=== PATIENT | female | born 1985 | race Caucasian/White ===

== ENCOUNTER 2022-12-16 16:21 | Outpatient (CLI) | payer BC, SELFPAY ==
--- NOTE | ~2022-12-16 | MM_ITS ---
EXAMINATION: MM screening sveta BI w adebayo HISTORY: Screening mammogram TECHNIQUE: Craniocaudal and mediolateral oblique 3-D tomosynthesis images were obtained and synthetic 2-D images were generated. CAD analysis was submitted and interpreted. COMPARISON: No prior mammogram is available for comparison at this institution. BREAST PARENCHYMAL COMPOSITION:The breasts are heterogeneously dense, which may obscure small masses. FINDINGS: No suspicious mass, calcification, or architectural distortion are identified in either dangelo ast to suggest malignancy. There has been no suspicious interval change. IMPRESSION: No mammographic evidence of malignancy. Recommend routine screening mammography in one year. BI-RADS Category 1: Negative Reviewed, dictated and finalized at location .
== END 2022-12-16 16:22 | disposition home or self-care (01) ==
LOC: ANHIMG 16:24
PROVIDERS: PCP Internal Medicine; Visit Provider Surgery Plastic and Reconstructive Surgery
DX: Z12.31 Encounter for screening mammogram for malignant neoplasm of breast (principal)
CPT/HCPCS: 77063; 77067

== ENCOUNTER 2023-03-11 01:30 | Day surgery (SDC) | payer OTHER, SELFPAY ==
[2023-03-04 10:37] VITALS: BMI 25.8
--- NOTE | 2023-03-04 10:46 | PC.NURSE ---
Report to the Outpatient Waiting Room, entrance under the green pavilion located off [facility], at 0600 on 03/11/23. Planned Procedure Time: 0730. Time changes happen often and if your time is changed the preop area will call you the afternoon before. - You and your visitor will be asked to self-screen and do not enter if you have any COVID symptoms. - A mask is optional within the hospital at this time. Patients may have clear liquids (water, carbonated beverages, clear teas, apple juice) until 3 hours prior to surgery with a maximum of 20 ounces. - No food from midnight until time of surgery Take the following medications with a SIP of water the morning of surgery: Fluoxetine, Inhaler if needed DO NOT STOP ANY OF YOUR OTHER PRESCRIPTION MEDICATIONS PRIOR TO SURGERY ?EXCEPT THE FOLLOWING Medications to discontinue per physician n/a Date to take last dose n/a Please no make-up, nail dutch, hairspray, perfume, deodorant, or body powder the day of surgery. No jewelry (including any body piercings) or valuables the day of surgery, leave them at home. Please take a shower or bath the night before, or the morning of, surgery with an antibacterial soap. Wear comfortable, loose fitting clothing. - Jewelry must be removed prior to entering the operating room. Rings and piercings that are not removed may be cut off. - The hospital will not accept responsibility for valuables. - Please leave all valuables, including medications, at home the day of surgery. If you are going home after surgery, a licensed truck driver instructor must drive you home. - NO public transportation without another adult if you receive anesthesia. - We recommend that an adult stay with you for 24 hours following discharge. - We also recommend that you do not drive, make important decision, drink alcoholic beverages, or take any drugs that were not prescribed by your health care provider for at least 24 hours after your discharge time. Follow any additional instructions given to you from your surgeon. If you or anyone in your household have experienced Covid symptoms in the past week, please notify your surgeon or the nurse liaison at the phone number below for possible testing. Telephone instructions given to patient and asked if any additional questions and then verbalized understanding. Patient advised to call surgeon office or pre surgery nurse liaison [phone] if any additional questions.
--- NOTE | 2023-03-10 09:09 | P.PNAN_ITS ---
Anes - Initial Pre Proc Eval Procedure: Operation Date: 03/11/23 07:30 Proposed Procedures p Abdominoplasty with Liposuction - Luis Prince MD s Bilateral Breast Augmentation - Luis Prince MD Date/Time: 03/10/23 09:09 Surgeon: Luis Prince MD Pre Op Diagnosis: Skin Laxity, Micromastia Patient Data Age: 38 Gender: F Height: 1.68 m Weight: 72.57 kg Allergies Allergy/AdvReac Type Severity Reaction Status Date / Time iodine Allergy UNKNOWN Verified 03/11/23 06:35 REACTION- TESTED POSITIVE IN ALLERGY TEST shrimp Allergy UNKNOWN- Verified 03/11/23 06:35 TESTED POSITIVE ON ALLERGY TEST Home Medications Medication Instructions Recorded Confirmed Type albuterol sulfate 90 mcg/actuation 1 puff inhalation DIRECTED PRN 08/13/19 03/04/23 History aerosol inhaler (ProAir HFA) Shortness Of Breath Or Wheezing fluoxetine 20 mg tablet 20 mg PO DAILY 08/13/19 03/11/23 History hydrocodone 5 mg-acetaminophen 325 1 - 2 tablet PO Q6H PRN pain #30 08/22/19 03/04/23 Rx mg tablet ([place]) tabs Patient hx anesthesia problems: none Family hx anesthesia problems: none Results Review: All pre-operative results and documents have been reviewed as part of the pre- operative evaluation. [facility] Past Medical History Medical History (Updated 08/22/19 @ 12:06 by Reji Romero MD) Anxiety Asthma IBS (irritable bowel syndrome) Surgical History Surgical History History of Family History Family History Other Cancer Cardiovascular disease Diabetes mellitus Social History Social History Smoking status: Never smoker Second hand tobacco smoke exposure: No Alcohol intake: current Alcohol use details: few times/year Substance use: never Living arrangements: with family Spiritual care concerns: No Anes - Eval Final PreProcedure Day of Procedure 03/10/23 09:09 Patient weight: overweight Heart: regular rate and rhythm Lungs: clear to auscultation Airway: Mallampati scale class II Neurological: alert and oriented Last oral intake: >/= 8 hours ASA classification: II Emergent: no Anesthetic plan: proceed Anesthesia type and monitoring: general ETT and standard monitoring Results Review: All pre-operative results and documents have been reviewed as part of the pre- operative evaluation. Informed Consent: The patient's anesthetic plan and its attendant risks and benefits were discussed with the patient/family/POA. Questions were solicited and answers pro vided to the satisfaction of the patient/family/POA.
[2023-03-11] VITALS (10 sets, daily range): BP systolic 98–121; BP diastolic 44–62; PULSE 70–115; RESP 12–20; TEMP 36.4–36.7; O2SAT 99–100
--- NOTE | 2023-03-11 06:30 | ECG_ITS ---
Measurements Intervals [place] Rate: 66 P: 32 MD: 126 QRS: 51 QRSD: 97 T: 53 QT: 408 QTc: 430 Interpretive Statements SINUS RHYTHM NORMAL ECG NO PREVIOUS ECG AVAILABLE FOR COMPARISON Electronically Signed On 03-11-2023 7:42:50 CDT by Earl Bunn D.O.
[2023-03-11] MEDS: LACTATED RINGERS 1,000 ML 30 ML IV CONT ×2 (06:40→12:30)
[2023-03-11 06:52] LABS: Hematocrit 40.3 % (37.0-47.0); Hemoglobin 13.1 g/dL (12.0-15.0)
[2023-03-11] MEDS: SCOPOLAMINE 1.5 MG PATCH TRANSDERM (06:55)
--- NOTE | 2023-03-11 06:58 | WPDHPUPDATE1 ---
History and Physical Update Update Date/Time: 03/11/23 06:58 History and Physical has been reviewed, including an updated exam of the patient. There are NO changes in the patient's condition. Risks, benefits, and alternatives have been discussed and questions answered. Patient agrees to proceed with procedure.
--- NOTE | 2023-03-11 06:59 | W.PM.PROC2 ---
Procedure Note - Detailed Date of Procedure 03/11/23 Pre-op Diagnosis Skin Laxity, Micromastia Post-op Diagnosis Same Procedure Performed 1. Bilateral breast augmentation 2. Progressive tension abdominoplasty with suction lipectomy Surgeon Luis Prince MD Anesthesia General Findings Bilateral Catherine Scruggs SoftTouch 360 cc implants Right - REF# [id number] SN [id number] Left - REF# [id number] SN [id number] Tissue removed: 1463.8 grams Lipoaspirate: 1300 cc Description of Procedure They are here today for the above. Previously and again today the risks, benefits, alternatives were discussed in extensive detail. I wanted them to be very realistic about the risks involved as well as expectations. We discussed aftercare and what to monitor for. I was very upfront about the risks of wound breakdown leading to loss of skin, open wounds, and need for additional procedures with permanent abdominal deformity. We discussed DVT/PE risks and management. Made sure answered all of their questions to their satisfaction today and consent was obtained. They were marked in the preoperative holding area with their verification. The patient was taken to the operating room placed supine on the operating table. Anesthesia was provided by anesthesiology. A Pepper catheter was started. They were prepped and draped in a standard sterile fashion. A surgical time-out was taken. Breast 1% lidocaine and 0.25% Marcaine with epinephrine was used anesthetize as a field block. She was prepped and draped in a standard sterile fashion. Tegaderm nipple Walsh were placed. A 15 blade used to make an incision along the inframammary fold. Dissection was continued at 45 degree angle until the chest wall as identified. I incised the pectoralis major along its inferior border and completely released the inferior border leaving the medial border intact. I created a subpectoral pocket in the appropriate dimensions based on our preoperative planning for the implant. I then copiously irrigated with saline solution and verified a strict hemostasis. Next Phase One was utilized to irrigate the pocket. I washed my gloves with the triple antibiotic and Betadine solution. We washed the implant immediately upon opening it with this solution and only opened it when we needed it. I used implant funnel and no-touch technique. The implant was introduced into the pocket using the funnel. Having verified positioning of the implant this was closed using 2-0 PDS followed by 3-0 Monocryl in a running subcuticular 4-0 Monocryl followed by tissue glue. Abdomen I placed the patient in a flexed position to verify the upper and lower markings would reach. I then placed supine. A thorough abdominal examination was completed. Stab incisions were made and tumescent solution infiltrated. Once adequate time was allowed for hemostasis a 5mm basket cannula and 3mm multi hole were utilized to complete suction lipectomy based on S.A.F.E. technique in multiple planes and passes. There were turned to bilateral lateral decubitus position with care taken to protect them for injury during this process. Suction lipectomy continued to result based on pre-operative planning, intra-operative observation, and rolling pinch test which were in full agreement. A 10 blade was used to make the upper incision. I continued dissection down to the level of fascia. Elevated just what was necessary for repair of the diastasis. I then again flexed the bed to verify the upper skin flap would reach the lower markings without tension. Once verified I placed her supine once again and a 10 blade used to make the lower incision. I elevated up to level the umbilicus and left the umbilicus intact on a well-vascularized stalk. The intervening tissue was removed. A 2 mm blunt cannula with 0.5% bupivicaine was injected deep to the fascia bilaterally. I plicated the diastasis recti using 0 PDO stratafix barbed suture. This w
[2023-03-11 07:10] LABS: Urine Cotinine NEGATIVE
[2023-03-11] MEDS: TRANEXAMIC ACID 1,000MG/ISO100 1,000 MG/100 ML BAG 200 MG IVPB (07:36)
[2023-03-11] MEDS: ceFAZolin 2 GM/D5W 50 ML 2 GM/50 ML BAG IVPB (07:48)
[2023-03-11] MEDS: LACTATED RINGERS IRRIG 1,000 ML, LIDOCAINE HCL 1% LOCAL INJ 50 ML, EPINEPHrine HCL INJ ... INFILTRATE (08:46)
[2023-03-11] MEDS: BUPivacaine HCL 0.25% PF 30 ML VIAL INFILTRATE (08:51)
[2023-03-11] MEDS: BUPIVACAINE/EPINEPHRINE 0.5% 10 ML VIAL 60 ML INFILTRATE (08:51)
[2023-03-11] MEDS: fentaNYL CITRATE INJ (*CRX) 100 MCG/2 ML VIAL 25 MCG IV PUSH ×5 (12:51→13:54)
[2023-03-11] MEDS: oxyCODONE HCL (*CRX) 5 MG TAB IR PO (13:54)
[2023-03-11] MEDS: ONDANSETRON INJ 4 MG/2 ML VIAL IV PUSH (13:54)
== END 2023-03-11 15:25 | disposition home or self-care (01) ==
PROVIDERS: Anesthesiology; PCP Internal Medicine; Visit Provider Surgery Plastic and Reconstructive Surgery
PROC: (CPT 19325; principal; 2023-03-11 07:30)
PROC: (CPT 19325; 2023-03-11 07:30)
DX: Z41.1 Encounter for cosmetic surgery (principal); N64.82 Hypoplasia of breast; L57.4 Cutis laxa senilis; Z79.51 Long term (current) use of inhaled steroids; J45.909 Unspecified asthma, uncomplicated; F41.9 Anxiety disorder, unspecified
CPT/HCPCS: 19325; 15830; 15847; 15877; 80307; 85014; 85018; 93005; A9270; J0171; J0690; J1100; J1170; J1580; J2250; J2405; J2704; J3010; J7030; J7120

== ENCOUNTER 2023-07-31 16:16 | Emergency (ER) | payer BC, OTHER, SELFPAY ==
[2023-07-31 16:29] VITALS: BP 111/50; PULSE 71; RESP 16; TEMP 36.2; O2SAT 100
--- NOTE | 2023-07-31 16:56 | ED.URI ---
HPI - URI/Sore Throat General Chief Complaint: Upper Respiratory Infection Stated Complaint: Cough Source: patient Mode of arrival: ambulatory Limitations: no limitations History of Present Illness HPI Narrative: 38-year-old female presents to [facility] with complaints of nonproductive cough, chest congestion in a.m. shortness of breath for the past 4 days. Patient reports history of at least her albuterol inhaler with minimal relief. Patient reports that her daughter recently had similar symptoms and was given antibiotic at that time. Patient denies wheezing, fever, body aches, chills, nausea vomiting or diarrhea. Patient is nonsmoker. Patient denies recent travel. MD elicited complaint: cough and other (Chest congestion) Onset (ago): day(s) (4) Able to tolerate fluids by mouth: Yes Exacerbating factors: nothing Relieving factors: nothing Context: sick contacts Treatments prior to arrival: cold medicine Related Data Home Medications Medication Instructions Recorded Confirmed albuterol sulfate 90 mcg/actuation 1 puff inhalation DIRECTED PRN 08/13/19 07/31/23 aerosol inhaler (ProAir HFA) Shortness Of Breath Or Wheezing fluoxetine 20 mg tablet 20 mg PO DAILY 08/13/19 07/31/23 Allergies Allergy/AdvReac Type Severity Reaction Status Date / Time iodine Allergy Unknown UNKNOWN Verified 07/31/23 16:26 REACTION- TESTED POSITIVE IN ALLERGY TEST shrimp Allergy Unknown UNKNOWN- Verified 07/31/23 16:26 TESTED POSITIVE ON ALLERGY TEST Review of Systems Constitutional: Constitutional: Denies chills, Denies fatigue, Denies fever(s) and Denies weakness ENT: Denies dizziness, Denies epistaxis and Denies nasal congestion Cardiovascular: Cardiovascular: Denies chest pain Respiratory: Respiratory: Reports cough, Reports dyspnea and Denies wheezing Gastrointestinal: Gastrointestinal: Denies diarrhea, Denies nausea and Denies vomiting Musculoskeletal: Musculoskeletal: Denies arthralgias and Denies joint swelling Integumentary/Breasts: Skin/Breast: Denies rash Neurologic: Denies syncope and Denies headache(s) [facility] Past Medical History Medical History (Updated 07/31/23 @ 16:59 by Hazel Martinez APRN) Anxiety Asthma IBS (irritable bowel syndrome) Surgical History Surgical History History of Family History Family History Other Cancer Cardiovascular disease Diabetes mellitus Social History Social History Smoking status: Never smoker Second hand tobacco smoke exposure: No Alcohol intake: current Alcohol use details: few times/year Substance use: never Living arrangements: with family Spiritual care concerns: No Comments At time of signature, I agree with nursing past medical, surgical, social and family history. There is no relevant family history pertinent to the presenting complaint. Exam Const: General: healthy appearing and no acute distress Nutritional Appearance: well nourished Orientation/consciousness: patient oriented x3 Limitations: no limitations HENMT: Head: normal to inspection Ears: external ears normal and TM's normal bilaterally Face/Nose/Sinus: Normal external nose present Face and sinus: normal facial exam Mouth: Yes Normal oral and palatal mucosa present and Yes moist mucous membranes Teeth and gingiva: dentition normal Throat: posterior oropharynx normal and uvula midline Eyes: Conjunctivae: conjunctivae normal Neck: Neck: normal visual inspection Resp: Effort & Inspection: normal respiratory effort and not labored Auscultation: clear to auscultation bilaterally, no crackles, no rales, no rhonchi and no wheezes Cardio: Rate: regular rate Rhythm: regular rhythm Heart sounds: no murmurs Skin: General skin exam: normal color Reg
== END 2023-07-31 17:05 | disposition home or self-care (01) ==
PROVIDERS: Emergency Provider Nurse Practitioner Family; PCP Internal Medicine
DX: J06.9 Acute upper respiratory infection, unspecified (principal); F41.9 Anxiety disorder, unspecified; J45.909 Unspecified asthma, uncomplicated
CPT/HCPCS: 99213; G0463

== ENCOUNTER 2024-03-08 08:35 | Emergency (ER) | payer BC, OTHER, SELFPAY ==
[2024-03-08 08:47] VITALS: BP 107/63; PULSE 86; RESP 18; TEMP 36.8; O2SAT 98
[2024-03-08 08:57] LABS: EDUAAPPEAR Clear; EDUABILI Negative; EDUABLOOD 1+; EDUACOLOR1 Yellow; EDUAGLUCOSE Negative; EDUAKETONE Negative; EDUALEUKO Negative; EDUANITRATE Negative; EDUAPROTEIN Negative; EDUAUROBILI 0.2
--- NOTE | 2024-03-08 09:07 | ED.GENADULT ---
HPI - General Adult General Chief complaint: Urogenital-Female Stated complaint: uti symptoms + covid symptoms Time Seen by Provider: 03/08/24 09:07 Source: patient, RN notes reviewed and old records reviewed Mode of arrival: ambulatory Limitations: no limitations History of Present Illness HPI narrative: 39-year-old female to [facility] for complaint of runny nose, sore throat, body aches , bilateral ear discomfort ( worse on right) for 2 days. Patient states that she took a positive COVID test at home yesterday. Patient denies fever, shortness of breath, chest pain, GI complaints, cough, difficulty swallowing. Patient also states that she was treated for a vaginal yeast infection on Tuesday with Diflucan x1. Patient reports continued vaginal irritation, discomfort, itching and burning with urination. Patient denies urinary frequency, urgency, incontinence, hematuria. Patient able to tolerate fluids by mouth. Respirations even and nonlabored. Patient in no acute distress. Related Data Home Medications Medication Instructions Recorded Confirmed albuterol sulfate 90 mcg/actuation 1 puff inhalation DIRECTED PRN 08/13/19 07/31/23 aerosol inhaler (ProAir HFA) Shortness Of Breath Or Wheezing fluoxetine 20 mg tablet 20 mg PO DAILY 08/13/19 07/31/23 Allergies Allergy/AdvReac Type Severity Reaction Status Date / Time iodine Allergy Unknown UNKNOWN Verified 03/08/24 09:09 REACTION- TESTED POSITIVE IN ALLERGY TEST shrimp Allergy Unknown UNKNOWN- Verified 03/08/24 09:09 TESTED POSITIVE ON ALLERGY TEST Review of Systems Review of Systems: All systems reviewed & are unremarkable except as noted in HPI and below Constitutional: Constitutional: Reports no additional constitutional complaints Eyes: Eyes: Reports no additional eye complaints ENT: Reports system reviewed and no additional complaints, except as documented Cardiovascular: Cardiovascular: Reports no additional cardiovascular complaints, Denies chest pain and Denies dyspnea Respiratory: Respiratory: Reports no additional respiratory complaints, Denies cough and Denies dyspnea Musculoskeletal: Musculoskeletal: Reports no additional musculoskeletal complaints Neurologic: Reports system reviewed and no additional complaints, except as documented Psychiatric: Psychiatric: Reports no additional psychiatric complaints [facility] Past Medical History Medical History (Updated 03/08/24 @ 09:43 by Bailey Alexander APRN) Anxiety Asthma IBS (irritable bowel syndrome) Surgical History Surgical History History of Family History Family History Other Cancer Cardiovascular disease Diabetes mellitus Social History Social History Smoking status: Never smoker Second hand tobacco smoke exposure: No Alcohol intake: current Alcohol use details: few times/year Substance use: never Living arrangements: with family Spiritual care concerns: No Comments At the time of my signature, I reviewed and agree with the nursing past medical, surgical, social, and family history. There is no relevant family history pertinent to the patient complaint. Exam Const: General: cooperative, healthy appearing, comfortable, no acute distress, alert and well nourished Nutritional Appearance: well nourished Orientation/consciousness: patient oriented x3 Limitations: no limitations HENMT: Head: normal to inspection Ears: external ears normal Face/Nose/Sinus: Normal external nose present, Normal nares present, normal facial exam, No erythema and No edema Face and sinus: normal facial exam, no erythema and no edema Mouth: Yes Normal oral and palatal mucosa present Eyes: General: appearance normal, both eyes and all related structures Neck
[2024-03-08 09:38] LABS: EDINFLUASCREEN Negative; EDINFLUBSCREEN Negative; EDSTREPNEGPOS1 Presumptive Negative
== END 2024-03-08 09:52 | disposition home or self-care (01) ==
PROVIDERS: Emergency Provider Nurse Practitioner Family
DX: B37.31 Acute candidiasis of vulva and vagina (principal); H60.91 Unspecified otitis externa, right ear; U07.1 COVID-19; J45.909 Unspecified asthma, uncomplicated; F41.9 Anxiety disorder, unspecified
CPT/HCPCS: 81003; 87081; 87426; 87804; 87880; 99213; G0463

== ENCOUNTER 2024-07-10 08:00 | Emergency (ER) | payer BC, OTHER, SELFPAY ==
[2024-07-10 08:13] VITALS: BP 106/56; PULSE 70; RESP 16; TEMP 36.3; O2SAT 100
--- NOTE | 2024-07-10 08:18 | ED_ITS ---
HPI - Ear Problem General Chief complaint: Ear Stated complaint: LT Ear Pain Time Seen by Provider: 07/10/24 08:18 Source: patient Mode of arrival: ambulatory Limitations: no limitations History of Present Illness HPI Narrative: 39 yo F presents with c/o fullness/clogged L ear for 3 to 4 days. Pain for 1 day. Taking zyrtec and nasal spray. Denies congestion/sinus symptoms. Afebrile. All systems reviewed and negative except as noted above. Related Data Home Medications Medication Instructions Recorded Confirmed fluoxetine 20 mg tablet 20 mg PO DAILY 08/13/19 07/10/24 Allergies Allergy/AdvReac Type Severity Reaction Status Date / Time iodine Allergy Unknown UNKNOWN Verified 07/10/24 08:17 REACTION- TESTED POSITIVE IN ALLERGY TEST shrimp Allergy Unknown UNKNOWN- Verified 07/10/24 08:17 TESTED POSITIVE ON ALLERGY TEST Review of Systems Review of Systems: CONSTITUTIONAL: Denies fever, chills, or sweats. EYES: Denies visual changes, redness, or discharge. ENT: Denies rhinorrhea, congestion, sore throat . Reports left ear pain. CARDIOVASCULAR: Denies chest pain, palpitations, or edema. RESPIRATORY: Denies cough or dyspnea. GASTROINTESTINAL: Denies abdominal pain, nausea, vomiting, or diarrhea. GENITOURINARY: Denies dysuria or hematuria. SKIN: Denies rash or itching. MUSCULOSKELETAL: Denies back pain, joint pain, or myalgia. NEUROLOGIC: Denies headache, numbness, or weakness. PSYCHIATRIC: Denies anxiety or depression. All other systems reviewed are negative, except as documented in HPI. [facility] Past Medical History Medical History (Updated 07/10/24 @ 08:25 by Irais De Jesus NP) Anxiety Asthma IBS (irritable bowel syndrome) Surgical History Surgical History History of Family History Family History Other Cancer Cardiovascular disease Diabetes mellitus Social History Social History Smoking status: Never smoker Second hand tobacco smoke exposure: No Alcohol intake: current Alcohol use details: few times/year Substance use: never Living arrangements: with family Spiritual care concerns: No Comments At time of signature, agree with nursing past medical, surgical, social and family history. There is no relevant family history pertinent to the presenting complaint. Exam Narrative: GENERAL: This is a well-nourished, well-developed patient, in no apparent d istress. HEAD: normocephalic, atraumatic. EYES: PERRL. Sclera clear/white. Vision is grossly intact. EARS: External ears normal, auditory canals clear and without drainage, Fluid bilateral TMs, left TM mild erythema and bulging without perforation bilaterally. Hearing grossly intact. NOSE: External nose normal with no obvious nasal discharge, nares without redness, no rhinorrhea. NECK: Neck supple, non-tender without lymphadenopathy, masses or thyromegaly. CARDIOVASCULAR: Regular rate and rhythm without murmurs, gallops, or rubs. RESPIRATORY: Clear to auscultation. Breath sounds equal bilaterally. No wheezes, rales, or rhonchi. SKIN: warm, Dry, intact with no suspicious lesions or rash, good texture and turgor. NEURO: awake, alert, and oriented to person, place and time. There were no obvious focal neurologic abnormalities. EXTREMITIES: No joint tenderness, effusion, or edema noted. Course Course Level of Care: Express Care Visit Vital Signs Vital signs: Vital Signs Temperature 36.3 C L 07/10/24 08:13 Pulse Rate 70 07/10/24 08:13 Respiratory Rate 16 07/10/24 08:13 Blood Pressure 106/56 L 07/10/24 08:13 Pulse Oximetry 100 07/10/24 08:13 Oxygen Delivery Room Air 07/10/24 08:13 Temperature 36.3 C L 07/10/24 08:13 Pulse Rate 70 07/10/24 08:13 Respiratory Rate 16 07/10/24 08:13 Blood Pressure 106/56 L 07/10/24 08:13 Pulse Oximetry 100 07/10/24 08:13 Oxygen Delivery Room Air 07/10/24 08:13 reviewed Medical Decision Making MDM Narrative Medical decision making narrative: will treat left serous otitis media with Amoxicillin and Medrol Dosepak. patient already taking antihistamine and nasal spray, recommend she continue. Patient is aware of diagnosis, understands and agrees to treatment plan. Anticipatory guidance given. Patient agrees to follow-up as directed and is aware of reasons to seek care at the emergency department. Portions of this record may have been created with voice recognition software Vital Signs Vital Signs: Vital Signs Temperature 36.3 C L 07/10/24 08:13 Pulse Rate 70 07/10/24 08:13 Respiratory Rate 16 07/10/24 08:13 Blood Pressure 106/56 L 07/10/24 08:13 Pulse Oximetry 100 07/10/24 08:13 Oxygen Delivery Room Air 07/10/24 08:13 Temperature 36.3 C L 07/10/24 08:13 Pulse Rate 70 07/10/24 08:13 Respiratory Rate 16 07/10/24 08:13 Blood Pressure 106/56 L 07/10/24 08:13 Pulse Oximetry 100 07/10/24 08:13 Oxygen Delivery Room Air 07/10/24 08:13 Discharge Plan Discharge Clinical Impression: Acute serous otitis media of left ear Qualifiers: Recurrence: not specified as recurrent Qualified Code(s): H65.02 - Acute serous otitis media, left ear Patient Disposition: Home, Self-Care Condition: Stable Instructions: Antibiotic Form, Fluid In The Ear (Serous Otitis Media) (ED) Additional Instructions: take medications as prescribed. Take ibuprofen or Tylenol every 6-8 hours as needed for pain/ fever. Continue taking [id number] antihistamine and nasal spray daily. Drink at least 64 oz of water a day. Follow-up with your doctor or an ENT specialist if symptoms not improving. Prescriptions: New amoxicillin 875 mg tablet 875 mg PO Q12H 10 Days Qty: 20 0RF methylprednisolone [Medrol (Wu)] 4 mg tablets,dose pack See Rx Instructions PO .COMPLEX Qty: 21 0RF Rx Instructions: orally per package directions No Action fluoxetine 20 mg tablet 20 mg PO DAILY Follow-up/Referrals: Naomi,DO Kenny [Primary Care Provider] - Time of Disposition: 08:27
== END 2024-07-10 08:29 | disposition home or self-care (01) ==
PROVIDERS: Emergency Provider Nurse Practitioner Family; PCP Student in an Organized Health Care Education/Training Program
DX: H65.02 Acute serous otitis media, left ear (principal); Z79.899 Other long term (current) drug therapy
CPT/HCPCS: 99213; G0463

== ENCOUNTER → 2024-12-11 11:13 | Outpatient (REF) | payer BC, OTHER, SELFPAY ==
--- OUTSIDE RECORDS SUMMARY | 2024-12-11 12:39 | XMS_ITS | Encounter Summary ---
Author Organization [facility] Address [address] [place] [id number] Care Team Providers Care Office Messenger Helper Name Role Phone Kenny Salgado DO Primary Care Provider + Reason for Visit * Reason Onset Date Comments Appointment Request 08/30/2024 Encounter Details Date Type Department Care Team (Late st Contact Info) Description 08/30/2024 Turbo Studiost Message Enc [facility] Family & Internal Medicine [facility] [address] [place] [address] Kenny Salgado DO [address] [place] [address] Z pack Social History Tobacco Use Types Packs/Day Years Used Date Smoking Tobacco: Never Smokeless Tobacco: Never Alcohol Use Standard Drinks/Week Comments Yes 0 (1 standard drink = 0.6 oz pur e alcohol) Occasional drink PHQ-2 Answer Date Recorded Patient Health Questionnaire-2 Score 0 07/02/2024 Comments No Sex and Gender Information Value Date Recorded Sex Assigned at Female 09/14/2024 10:08 AM OUTPATIENT PSYCHIATRIST Legal Sex Female 4:27 PM CDT Gender Identity Female 09/14/2024 10:08 AM OUTPATIENT PSYCHIATRIST Sexual Orientation Not on file documented as of this encounter Progress Notes * Sangeetha Turner - 09/13/2024 1:07 PM CST Patient called back and scheduled a VV ATIENT PSYCHIATRIST * DIMPLE Shah - 09/13/2024 12:15 PM CST LVM to r/c to schedule a VV for tomorrow. ATIENT PSYCHIATRIST * Kenny Salgado DO - 09/13/2024 11:42 AM CST Would still like to be seen, but can be virtual if she prefers. ATIENT PSYCHIATRIST * Kenny Salgado DO - 08/30/2024 4:22 PM CST I will be out of the office the next few days and my colleagues do not have openings at this time, so will send out. Needs to be see if not improving. ATIENT PSYCHIATRIST documented in this encounter Plan of Treatment Not on file documented as of this encounter Visit Diagnoses Diagnosis Acute non-recurrent sinusitis, unspecified location- Primary documented in this encounter Care Teams Office Messenger Helper Relationship Specialty Start Date End Date Kenny Salgado DO [address] [place] [id number] PCP - General FAMILY PRACTICE 10/14/23 documented as of this encounter
--- OUTSIDE RECORDS SUMMARY | 2024-12-11 12:39 | XMS_ITS | Clinical Summary ---
Author Organization [facility] [address] Address [address] [place] [address] Care Team Providers Care Social Work Specialist Name Role Phone Marcus Burks MD Primary Care Provider Allergies Active Allergy Reactions Criticality Noted Date Comments Shrimp Unknown 05/07/2020 Medications FLUoxetine (PROzac) 20 mg tablet Take 20 mg by mouth daily 04/28/2020 Active ALPRAZolam (XANAX) 0.25 mg tablet Take 0.25 mg by mouth nightly as needed for anxiety (Does not use very often.) Active albuterol HFA (PROVENTIL HFA,VENTOLIN HFA,PROAIR HFA) 90 mcg/actuation inhaler Inhale 2 puffs every 6 (six) hours as needed for wheezing Active Active Problems No known active problems Medical History Medical History Date Comments Anxiety Depression Indigestion Dyspnea Social History Tobacco Use Types Packs/Day Years Used Date Smoking Tobacco: Never Personal Safety Answer Date Recorded Getting School Help Needed Not on file 10/29 Comments Unknown Sex and Gender Information Value Date Recorded Sex Assigned at Not on file Legal Sex Female 8:02 AM CDT Gender Identity Not on file Sexual Orientation Not on file Obstetrics History Last Filed Vital Signs Vital Sign Reading Time Taken Comments Blood Pressure 94/66 05/07/2020 11:01 AM CDT Pulse 71 05/07/2020 11:01 AM CDT Temperature - - Respiratory Rate - - Oxygen Saturation 99% 05/07/2020 10:16 AM CDT Inhaled Oxygen Concentration - - Weight 73.9 kg (163 lb) 05/07/2020 10:16 AM CDT Height - - Body Mass Index - - Plan of Treatment Not on file Insurance [facility] [place] [id number] [facility] CLAIMS [place] [place] [id number] Care Teams Social Work Specialist Relationship Specialty Start Date End Date Marcus Burks MD PCP - General Internal Medicine 03/12/20
--- OUTSIDE RECORDS SUMMARY | 2024-12-11 12:39 | XMS_ITS | Clinical Summary ---
Author Organization [facility] Address [address] [place] [address] Care Team Providers Care Pineapple Plantation Manager Name Role Phone Unavailable Primary Care Provider Unavailabl e Source Comments [facility],non-owned Affiliates and Associated Physician Practices is amultiple site organization consisting of ambulatory clinics and hospital sitesin [place], [place], [place] and [place]. This disclosure is being madepursuant to the Care Everywhere program and may not contain all information available regarding this patient. 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 Gender Identity Not on file Sexual Orientation Not on file Plan of Treatment Health Maintenance Due Date Last Done Comments HIV SCREENING 2000 HEPATITIS C SCREENING 02/26/2003 DTAP/TDAP/TD VACCINES (1 - Tdap) 2004 HEPATITIS B VACCINE (1 of 3 - 19+ 3-dose series) 2004 HEPATITIS A VACCINE (2 of 2 - Risk 2-dose series) 04/11/2019 10/12/2018 COVID-19 VACCINE ( - 2023-2 5 season) 2024 DEPRESSION SCREENING 08/15/2024 INFLUENZA VACCINE (Season Ended) 2025 ZOSTER VACCINE (1 of 2) 2035 HIB VACCINE Aged Out No longer eligi ble based on patient's age to complete this topic HPV VACCINE Aged Out No longer eligi ble based on patient's age to complete this topic MENINGOCOCCAL (Group B) VACC INE SHARED DECISION-MAKING Aged Out No longer eligibl e based on patient's age to complete this topic MENINGOCOCCAL GROUPS A/C/Y/W VACCINE Aged Out No longer eligible b ased on patient's age to complete this topic PNEUMOCOCCAL VACCINE Aged Out No long er eligible based on patient's age to complete this topic Insurance
--- OUTSIDE RECORDS SUMMARY | 2024-12-11 12:39 | XMS_ITS | Referral Summary ---
Author Organization [facility] [address] Address [address] [place] [address] Care Team Providers Care Senior Computer Specialist Name Role Phone Marcus Burks MD Primary Care Provider [phone] Allergies Active Allergy Reactions Criticality Noted Date [...] Active Active Problems No known active problems Social History Tobacco Use Types Packs/Day Years Used Date Smoking Tobacco: Never Personal Safety Answer Date Recorded Getting School Help Needed Not on file 10/29 Comments Unknown Sex and Gender Information Value Date Recorded Sex Assigned at Not on file Legal Sex Female 8:02 AM CDT Gender Identity Not on file Sexual Orientation Not on file Last Filed Vital Signs Vital Sign Reading [...] Plan of Treatment Not on file Insurance [facility] [place] [id number] [facility] CLAIMS Care Teams Senior Computer Specialist Relationship Specialty Start Date End Date Marcus Burks MD PCP - General Internal Medicine 03/12/20
--- OUTSIDE RECORDS SUMMARY | 2024-12-11 12:39 | XMS_ITS | Clinical Summary ---
Author Organization [facility] Address [facility] [place] [address] Care Team Providers Care Studio Hand Name Role Phone Kenny Salgado DO Primary Care Provider + Allergies Active Allergy Reactions Criticality Noted Date Comments Shellfish Allergy Unknown 07/02/2024 Shirmp Medications ALPRAZolam (XANAX) 0.25 MG tablet Take 1 tablet (0.25 mg total) by mouth nightly as needed for Sleep. Active FLUoxetine (PROZAC) 20 MG tabletIndications :JOSIAS (generalized anxiety disorder) Take 1 tablet (20 mg total) by mouth daily. 90 tablet 3 4 Active albuterol sulfate HFA 108 (90 Base) MCG/ACT inhaler Inhale 2 puffs into the lungs every 6 (six) hours as needed for Wheezing. 4 Active predniSONE (DELTASONE) 20 MG tabletIndications :Upper respiratory tract infection, unspecified type Take 3 tablets for three days, then take 2 tablets for three days, then take 1 tablet for three days 18 tablet 5 Active cefdinir (OMNICEF) 300 MG Cap capsuleIndication s:Upper respiratory tract infection, unspecified type Take 1 capsule (300 mg total) by mouth 2 (two) times daily. 20 capsule 5 Active fluticasone furoate-vilantero l (BREO ELLIPTA) 100-25 MCG/ACT inhalerIndication s:Mild intermittent asthma with acute exacerbation (HHS/HCC) Inhale 1 puff into the lungs daily. 60 each 2 5 Active azithromycin (ZITHROMAX) 250 MG tabletIndications :Upper respiratory tract infection, unspecified type Take 2 tabs daily for one day, then take 1 tab daily 6 tablet Active Active Problems Problem Noted Date Diagnosed Date Irritable bowel syndrome with constipation 07/02 JOSIAS (generalized anxiety disorder) 04/29/2007 Asthma ([facility]/HCC) 1985 Encounters Date Type Department Care Team Description 10/01/2024 MyChart Message Enc [facility] Family & Internal [address] [address] Kenny Salgado, DO antibiotic change 09/18/2024 Telephone [facility] Internal [address] [address] Kenny Salgado, DO Question 09/14/2024 10:00 AM TMR TEACHER Telemedicine [facility] Family Internal [address] [address] Kenny Salgado, DO Sinus Problem; Asthma 09/14/2024 Scan DCWafers INFO SRVCS Scanned, [facility] 09/14/2024 Travel from Last 3 Months Immunizations Immunization Administration Dates Next Due Hepatitis A (Havrix [address]) 10/12/2018 Tdap (Adacel) 07/02/2024 Family History Medical History Relation Comments Asthma Daughter Mental Health Daughter Anxiety/depressi on COPD Father Heart Disease Father Hypertension Father Cancer Maternal Aunt Colon cancer age 32 Diabetes Maternal Grandmother Mental Health Mother Anxiety Asthma Son 1 Asthma Son 2 Relation Status Comments Daughter Father Maternal Aunt Maternal Grandmother Mother Son 1 Son 2 Social History Tobacco Use Types Packs/Day Years Used Date Smoking Tobacco: Never Smokeless Tobacco: Never Alcohol Use Standard Drinks/Week Comments Yes 0 (1 standard drink = 0.6 oz pur e alcohol) Occasional drink PHQ-2 Answer Date Recorded Patient Health Questionnaire-2 Score 0 07/02/2024 Comments No Sex and Gender Information Value Date Recorded Sex Assigned at Female 09/14/2024 10:08 AM TMR TEACHER Legal Sex Female 4:27 PM CDT Gender Identity Female 09/14/2024 10:08 AM TMR TEACHER Sexual Orientation Not on file Last Filed Vital Signs Vital Sign Reading Time Taken Comments Blood Pressure 118/74 07/02/2024 1:12 PM TMR TEACHER Pulse 94 07/02/2024 1:12 PM TMR TEACHER Temperature 36.6 C (97.9 F) 07/02/2024 1:12 PM TMR TEACHER Respiratory Rate 16 07/02/2024 1:12 PM TMR TEACHER Oxygen Saturation 98% 07/02/2024 1:12 PM TMR TEACHER Inhaled Oxygen Concentration - - Weight 68.4 kg (150 lb 14.4 oz) 07/02/2024 1:12 PM TMR TEACHER Height 166.4 cm (5' 5.5 ) 07/02/2024 1:12 PM TMR TEACHER Body Mass Index 24.73 07/02/2024 1:12 PM TMR TEACHER Plan of Treatment Health Maintenance Due Date Last Done Comments Cervical Cancer Screening Pa p Smear (Age 30 to 64) Every 3 Years 1985 Hepatitis B Vaccines (1 of 3 - 19+ 3-dose series) 2004 Pneumococcal Vaccine: Pediat rics (0 to 5 Years) and At-Risk Patients (6 to 49 Years) (1 of 2 - PCV) 2004 Cervical Cancer Screening Pa p with HPV Testing (Age 30 to 64) Every 5 Years 2015 COVID-19 Vaccine ( - 2023-2 5 season) 2024 PHQ-2 (Physician [place]) 08/15/2024 07/02/2024 Annual Physical 07/02/2025 07/02/2024 Cervical Cancer Screening with HPV 07/02/2025 Postponed from 2015 (Going to Outside Clinic) DTaP, Tdap and Td Vaccines ( 2 - Td or Tdap) 07/02/2034 07/02/2024 Hepatitis C Completed 07/02/2024 HPV Vaccines Aged Out No longer eligi ble based on patient's age to complete this topic Meningococcal B Vaccine Aged Out No l [place] eligible based on patient's age to complete this topic Meningococcal Vaccine Aged Out No [place] eligible based on patient's age to complete this topic RSV Immunizations Under 20 Months Aged Out No longer eligible based on patient's age to complete this topic Procedures Procedure Name Priority Date/Time Associated Diagnosis Comments HEPATITIS C ANTIBODY Routine 07/02/2024 1:55 PM TMR TEACHER Encounter for preventative adult health care examination Screening for lipid disorders Screening for endocrine, metabolic and immunity disorder Need for hepatitis C screening test from Last 3 Months or Most Recently Relevant to Health Maintenance Results * HEPATITIS C ANTIBODY (07/02/2024 1:55 PM TMR TEACHER) HEPATITIS C AB NON-REACTI VE NON-REACT WENDY 07/02/2024 9:35 PM TMR TEACHER [facility] Comment: ANTIBODIES TO HCV NOT DETECTED. DOES NOT EXCLUDE THE POSSIBILITY OF EXPOSURE TO HCV. 07/02/2024 1:55 PM TMR TEACHER Kenny Salgado DO LABORATORY Final Re sult [facility] [address] [place] [address], [place] [phone] [id number] from Last 3 Months or Most Recently Relevant to Health Maintenance Insurance [facility] Care Teams Studio Hand Relationship Specialty Start Date End Date Kenny Salgado DO [address] [place] [id number] PCP - General FAMILY PRACTICE 10/14/23
== END ==
LOC: ANHLAB 11:13
PROVIDERS: Visit Provider Plastic Surgery
DX: L90.5 Scar conditions and fibrosis of skin (principal); L30.8 Other specified dermatitis; D22.5 Melanocytic nevi of trunk
CPT/HCPCS: 88305